=== PATIENT | female | born 1985 | race African-American/Black ===

== ENCOUNTER 2016-10-02 15:36 | Emergency (ER) | payer OTHER ==
[~2016-10-02] VITALS: Ht 160 cm; Wt 68.0 kg
[~2016-10-02 15:36] MED LIST: DOCUSATE SODIU100 MG PO; IBUPROFEN800 MG PO
--- NOTE | 2016-10-02 15:52 | ED NECK/BACK PAIN COMPLAINT ---
History of Present Illness General Chief Complaint: Low Back Pain/Injury Stated Complaint: LOW BACK PAIN INJURY AT WORK TODAY Source: patient, EMS Exam Limitations: no limitations Vital Signs & Intake/Output Vital Signs & Intake/Output Vital Signs Date Time Temp Pulse Resp B/P Pulse O2 O2 Flow FiO2 Ox Delivery Rate 10/02 1609 99 Room Air 10/02 1546 98.2 80 16 139/89 98 Room Air Room Air Allergies Coded Allergies: NO KNOWN ALLERGIES (10/02/16) Reconcile Medications Cyclobenzaprine HCl 10 MG TABLET 1 TAB PO TID PRN SPASM DO NOT DRIVE WITH THIS MEDICATION Docusate Sodium 100 MG SGL 100 MG PO BID PRN STOOL SOFTENER Ibuprofen 800 MG TABLET 1 TAB PO TID PAIN Ibuprofen 800 MG TABLET 800 MG PO Q6P PRN PAIN SCALE 4-6 Methylprednisolone. (Medrol) 4 MG TAB.DS.PK 1 DP PO AD INFLAMMATION 6 on day 1 then reduce by one tablet daily until gone Oxycodone HCl/Acetaminophen (Percocet 5-325 MG Tablet) 5 MG-325 MG TABLET 1 TAB PO Q4-6 PRN BREAKTHROUGH PAIN Triage Note: PT TO TRIAGE WITH LEFT LOWER BACK AND HIP PAIN THAT RADITES DOWN HER LEG. PT STATES SHE WAS ROLLING A HEAVY PT LAST NIGHT AND THAT WAS WHEN THE PAIN STARTED. PAIN IS SHOOTING WITH TINGLING IN HER LEG. Triage Nurses Notes Reviewed? yes Onset: Abrupt Duration: hour(s): (FEW) Timing: multiple episodes today Location: lumbar spine Radiation: LEFT LEG UP TO TOES Context: LIFTED HEAVY PATIENT AT WORK Loss of Consciousness: no loss of consciousness Modifying Factors: movement Associated Symptoms: muscle spasm : No Patient currently breastfeeds: No HPI: This is a 31-year-old healthy female presents by EMS from home for chief complaint of acute onset of left lower back pain radiating to the leg that began around 8:30 this morning. 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 Patient denies any pain while at work or on the way home. She states she took a shower and went to bed around 7 AM. From 8:00 she started to develop the pain and felt worse with moving in bed. Pain radiates to her toes. Denies any difficulty with bowel or bladder. Denies any sensory deficit. No history of similar symptoms. She did not fall. No history of sustaining a previous back injury. Past History Travel History Traveled to [place] past 21 day No Medical History Any Pertinent Medical History? 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 No Review of Systems Review of Systems Constitutional: Denies: chills, fever. Eyes: Reports: no symptoms. Ears, Nose, Throat, Mouth: Reports: no symptoms. Respiratory: Denies: hemoptysis, short of breath. Cardiovascular: Denies: chest pain. Gastrointestinal/Abdominal: Reports: no symptoms. Musculoskeletal: Reports: gout, muscle pain, muscle stiffness. Denies: neck pain. Skin: Reports: no symptoms. Neurological/Psychological: Denies: numbness, tingling, weakness. All Other Systems: Reviewed and Negative Physical Exam Physical Exam General Appearance: well developed/nourished, mild distress Head: atraumatic Eyes: Bilateral: PERRL, EOMI. Ears, Nose, Throat, Mouth: hearing grossly normal Neck: normal inspection, supple, full range of motion Respiratory: normal breath sounds Cardiovascular: regular rate/rhythm Peripheral Pulses: 2+ radial (R), 2+ radial (L) Gastrointestinal: soft, non-tender Back: normal inspection Extremities: normal range of motion Straight Leg Raising: Left: Pain at ____ degrees (10). Neurologic/Psych: awake, alert, oriented x 3, normal mood/affect Skin: intact, normal color, warm/dry Progress Differential Diagnosis: herniated disc, myofascial strain, sciatica Plan of Care: TORADOL, PREDNISONE, VALIUM ORDERED. PATIENT NEUROLOGICALLY INTACT. POSITIVE LEFT SIDED STRAIGHT LEG RAISE. WILL FOLLOW UP WITH [facility]. Departure Departure Time of Disposition: 1633 Disposition: HOME OR SELF CARE Condition: Stable Clinical Impression Primary Impression: Sciatic leg pain Referrals: PATIENT HAS NO PRIMARY CARE DR (PCP/Family) Additional Instructions: Take the ibuprofen, Medrol Dosepak, cyclobenzaprine and Percocet as directed. Please follow-up with occupational medicine for return back to work. Do not drive or take care of young children with either Flexeril or Percocet. Return to the ER for any changing or worsening symptoms such as worsening back pain, difficulty with bowel or bladder, weakness of the leg. Departure Forms: Customer Survey General Discharge Information Prescriptions: Current Visit Scripts Methylprednisolone. (Medrol) 1 DP PO AD #1 DP 6 on day 1 then reduce by one tablet daily until gone Ibuprofen 1 TAB PO TID #30 TAB Cyclobenzaprine HCl 1 TAB PO TID PRN SPASM #[address] WITH THIS MEDICATION Oxycodone HCl/Acetaminophen (Percocet 5-325 MG Tablet) 1 TAB PO Q4-6 PRN BREAKTHROUGH PAIN #10 TAB
[2016-10-02] MEDS ORDERED: PERCOCET 5-3251 EACH PO (16:25)
[2016-10-02] MEDS ORDERED: MEDROL4 M2 PO (16:25)
[2016-10-02] MEDS ORDERED: CYCLOBENZAPRINE10 M1 PO (16:25)
[2016-10-02] MEDS ORDERED: IBUPROFEN800 M1 PO (16:25)
[2016-10-02 16:39] VITALS: BP 124/74
== END 2016-10-02 16:40 ==
LOC: ERH 15:36
DX: M79.605 Pain in left leg (principal)
CPT/HCPCS: 96372; J1885; J3360